=== PATIENT | female | born 1955 | race Caucasian/White ===

== ENCOUNTER 2020-01-09 21:19 | Inpatient (IN) | payer BC ==
[~2020-01-09] VITALS: Ht 167.6 cm; Wt 69.5 kg
[2020-01-09 21:47] LABS: BASOPHILS % (AUTO) 0.3 % (0-1); EOSINOPHILS % (AUTO) 0 % (0-6); HEMOGLOBIN 17.1 g/dl (12.0-16.0); LYMPHOCYTES % (AUTO) 5.7 % (21-51); MEAN CORPUSCULAR HEMOGLOBIN 32.7 PG (27.0-31.0); MEAN CORPUSCULAR HGB CONC 34.3 g/dL (33.0-36.5); MEAN CORPUSCULAR VOLUME 95.4 FL (78-98); MEAN PLATELET VOLUME 7.3 FL (7.4-10.4); MONOCYTES # (AUTO) 0.7 X10'3 (0-0.9); MONOCYTES % (AUTO) 4.1 % (2-12); NEUTROPHILS # (AUTO) 15.3 X10'3 (1.8-7.7); NEUTROPHILS % (AUTO) 89.9 % (42-75); PLATELET COUNT 298 X10'3 (140-440); RED BLOOD COUNT 5.24 X10'6 (4.20-5.60); RED CELL DISTRIBUTION WIDTH 13.1 % (11.5-14.5)
[2020-01-09 22:01] LABS: ALANINE AMINOTRANSFERASE 34 U/L (12-78); ALBUMIN 4.9 G/DL (3.4-5.0); ALBUMIN/GLOBULIN RATIO 1.3 (1.1-1.5); ALKALINE PHOSPHATASE 97 IU/L (46-116); ANION GAP 12 (8-16); ASPARTATE AMINO TRANSFERASE 17 U/L (10-37); BILIRUBIN,TOTAL 0.5 MG/DL (0.1-1.0); BLOOD UREA NITROGEN 29 MG/DL (7-18); BUN/CREATININE RATIO 20.4 (6.6-38.0); CALCIUM 10.1 MG/DL (8.5-10.1); CHLORIDE 101 MMOL/L (99-107); CREATININE 1.42 MG/DL (0.40-0.90); GLUCOSE 155 MG/DL (70-104); LIPASE 122 U/L (73-393); POTASSIUM 3.8 MMOL/L (3.5-5.1); SODIUM 140 MMOL/L (135-145); TOTAL CARBON DIOXIDE 26.8 MMOL/L (24-32); TOTAL PROTEIN 8.7 G/DL (6.4-8.2); eGFR 37 ML/MIN
[2020-01-09] MEDS ORDERED: ondansetron/PF 4mg/2ml inj IV ONE (23:05)
[2020-01-09] MEDS ORDERED: normal saline 1000ml 1,000 ML IV ONE (23:05)
[2020-01-09] MEDS ORDERED: morphine 4 MG/ML inj SYRINge IV ONE (23:05)
[2020-01-09 23:08] LABS: URINE HCG NEGATIVE (NEG)
[2020-01-09] MEDS ORDERED: iohexol 300mg/ml 100ml inj. ONE (23:41)
[2020-01-10] VITALS (20 sets, daily range): BP systolic 101–170; BP diastolic 58–82
[2020-01-10 00:10] LABS: CLARITY,URINE SLIGHTLY CLOUDY (Clear); COLOR,URINE YELLOW (Yellow); GLUCOSE, URINE NEGATIVE (Neg); KETONES,URINE NEGATIVE (Neg); LEUKOCYTE ESTERASE ,URINE NEGATIVE (Neg); NITRITES, URINE NEGATIVE (Neg); OCCULT BLOOD,URINE TRACE-INTACT (Neg); PH,URINE 5.5 (4.8-8.0); PROTEIN,URINE NEGATIVE (Neg); UROBILINOGEN,URINE 0.2 E.U/dL (0.2-1.0)
[2020-01-10 00:29] LABS: UA COLLECTION TYPE CLN CATCH MIDSTREAM
[2020-01-10 00:30] LABS: MUCUS STRANDS MANY /LPF (Neg); SQUAMOUS EPITHELIAL CELL,UR MANY /LPF (FEW)
[2020-01-10 00:31] LABS: HYALINE CASTS >30 /LPF (NEGATIVE)
[2020-01-10 00:32] LABS: BACTERIA,URINE 2+ /HPF (Neg); RBC,URINE NONE SEEN /HPF (0-2); WBC,URINE 0-4 /HPF (0-4)
[2020-01-10] MEDS ORDERED: LEVO150T PO (00:47)
[2020-01-10] MEDS ORDERED: BUPR150T8 PO (00:47)
--- NOTE | 2020-01-10 00:47 | NUR ---
NG TUBE PLACED WITH LAITH ALMANZAR. AUSCULTATED AIR PUSH IN STOMACH. DRAINING RUST COLORED STOMACH FLUID.
[2020-01-10] MEDS ORDERED: magnesium hydroxide 30ml (MOM) UD suspension PO PRN (01:15)
[2020-01-10] MEDS ORDERED: ondansetron/PF 4mg/2ml inj IV PRN ×2 (01:15→12:25)
[2020-01-10] MEDS ORDERED: bisacodyl 10mg suppository rectal RC PRN (01:15)
[2020-01-10] MEDS ORDERED: magnesium 2GM in 50ml NS 50 ML IV PRN (01:15)
[2020-01-10] MEDS ORDERED: metoclopramide 5 mg/ml inj IV PRN (01:15)
[2020-01-10] MEDS ORDERED: magnesium Cl slow-release 64mg tablet PO PRN (01:15)
[2020-01-10] MEDS ORDERED: morphine 2 MG/ML inj. syringe IV PRN ×2 (01:15→12:25)
[2020-01-10] MEDS ORDERED: magnesium 4gm in 100ml NS 100 ML IV PRN (01:15)
[2020-01-10] MEDS ORDERED: HYDROmorphone inj. 0.5 MG/0.5 ML DISP.SYRIN IV PRN (01:15)
[2020-01-10] MEDS ORDERED: mag hydrox/Alum hydrox/simeth 30ml oral suspension PO PRN (01:15)
[2020-01-10] MEDS ORDERED: potassium Cl 20 mEq SR tablet PO PRN ×2 (01:15)
[2020-01-10] MEDS ORDERED: potassium CL 10mEq/100ml bag 100 ML IV PRN (01:15)
[2020-01-10] MEDS ORDERED: acetaminophen 325mg tablet PO PRN (01:15)
--- NOTE | 2020-01-10 02:00 | NUR ---
Received report from KALI Killian RN
--- NOTE | 2020-01-10 02:45 | NUR ---
0230: Patient arrived to unit via gurney and RN transporting. She had her back pack and bag of belongings. She is ALOx4, And [facility] bed.
[2020-01-10] MEDS: normal saline 1000ml 1,000 ML IV SCH ×3 (03:02→15:04)
[2020-01-10] MEDS: piperacillin/tazo 3.375gm/50ml 50 ML IV SCH ×3 (03:19→16:57)
[2020-01-10] MEDS ORDERED: diatr meglu/diatrizoate 30ml oral sol.-(3 dose) bottle PO ONE (04:15)
[2020-01-10] MEDS: morphine 2 MG/ML inj. syringe IV PRN ×2 (05:25→09:26)
--- NOTE | 2020-01-10 06:49 | NUR ---
Problems reprioritized. Patient report given, questions answered & plan of care reviewed with JENELLE Dunlap.
--- NOTE | 2020-01-10 06:54 | NUR ---
Patient in room [facility]. I have received report from Gibson ALMANZAR and had the opportunity to ask questions and assume patient care.
[2020-01-10] MEDS: buPROPion SR 150mg tablet PO SCH (07:54)
[2020-01-10] MEDS: levoTHYROXINE 75mcg tablet PO SCH (07:55)
[2020-01-10] MEDS: heparin, porcine 5000 units/ml vial SQ SCH ×2 (08:00→19:42)
[2020-01-10] MEDS: K and/or MAG REPLACEMENT MC SCH ×2 (08:00→20:00)
[2020-01-10] MEDS ORDERED: BUPIVAcaine/PF 2.5 mg/ml (0.25%) 30ml vial ONE (11:29)
[2020-01-10] MEDS ORDERED: BUPIVAcaine/PF 2.5mg/ml (0.25%) 10ml vial ONE (11:29)
[2020-01-10] MEDS ORDERED: LIDOcaine 1% 30ml preserv. free vial ONE (11:29)
[2020-01-10] MEDS ORDERED: BUPIVACAINE liposomal/PF 13.3 MG/ML vial IM ONE (11:29)
[2020-01-10] MEDS ORDERED: ceFOXitin 2GM-NS 100mL ADDvant 100 ML IV ONE (11:35)
[2020-01-10] MEDS ORDERED: rocuronium 10mg/ml inj IV ONE (11:36)
[2020-01-10] MEDS ORDERED: propofol inj 20 ML IV ONE (11:36)
[2020-01-10] MEDS ORDERED: fentaNYL/PF 50MCG/1 ML 2ML syringe ONE (11:36)
[2020-01-10] MEDS ORDERED: LIDOcaine 2% (20mg/ml) 5ml vial ONE (11:36)
[2020-01-10] MEDS ORDERED: midazolam 2 mg/2 ml injection ONE (11:36)
[2020-01-10] MEDS ORDERED: ceFOXitin 2GM-NS 50mL ADDVANT. 50 ML IV ONE (11:42)
[2020-01-10] MEDS ORDERED: ceFOXitin sod/dextrose 2g/50ml 50 ML IV ONE (11:45)
[2020-01-10] MEDS ORDERED: sevoflurane 250ml liquid IH ONE (11:53)
[2020-01-10 11:57] LABS: BASOPHILS % (AUTO) 0.2 % (0-1); EOSINOPHILS % (AUTO) 0.1 % (0-6); HEMATOCRIT 48.8 % (35.0-45.0); HEMOGLOBIN 16.7 g/dl (12.0-16.0); LYMPHOCYTES # (AUTO) 1.4 X10'3 (1.1-4.8); LYMPHOCYTES % (AUTO) 11.5 % (21-51); MEAN CORPUSCULAR HEMOGLOBIN 32.7 PG (27.0-31.0); MEAN CORPUSCULAR HGB CONC 34.2 g/dL (33.0-36.5); MEAN CORPUSCULAR VOLUME 95.5 FL (78-98); MEAN PLATELET VOLUME 7.1 FL (7.4-10.4); MONOCYTES # (AUTO) 1.3 X10'3 (0-0.9); NEUTROPHILS # (AUTO) 9.5 X10'3 (1.8-7.7); NEUTROPHILS % (AUTO) 77.2 % (42-75); PLATELET COUNT 294 X10'3 (140-440); RED BLOOD COUNT 5.11 X10'6 (4.20-5.60); RED CELL DISTRIBUTION WIDTH 13.2 % (11.5-14.5); WHITE BLOOD COUNT 12.2 X10'3 (4.5-11.0)
[2020-01-10 12:08] LABS: ALBUMIN 4.3 G/DL (3.4-5.0); ANION GAP 10 (8-16); BLOOD UREA NITROGEN 31 MG/DL (7-18); BUN/CREATININE RATIO 27.2 (6.6-38.0); CALCIUM 9.2 MG/DL (8.5-10.1); CHLORIDE 100 MMOL/L (99-107); CREATININE 1.14 MG/DL (0.40-0.90); GLUCOSE 146 MG/DL (70-104); POTASSIUM 3.2 MMOL/L (3.5-5.1); SODIUM 141 MMOL/L (135-145); TOTAL CARBON DIOXIDE 30.6 MMOL/L (24-32); eGFR 48 ML/MIN
[2020-01-10] MEDS ORDERED: ringers solution, lacted 1,000 ML IV SCH (12:22)
[2020-01-10] MEDS ORDERED: proCHLORperazine 10 MG/2 ml inj IV PRN (12:25)
[2020-01-10] MEDS ORDERED: morphine 4 MG/ML inj SYRINge IV PRN (12:25)
[2020-01-10] MEDS ORDERED: meperidine/PF 25mg/ml syringe IV PRN ×3 (12:25)
[2020-01-10] MEDS ORDERED: glycopyrrolate 0.2mg/ml inj ONE (12:29)
[2020-01-10] MEDS ORDERED: dexamethasone sod phosphate 4mg/ml inj. ONE (12:29)
[2020-01-10] MEDS ORDERED: ondansetron/PF 4mg/2ml inj ONE (12:29)
[2020-01-10] MEDS ORDERED: neostigmine methylsulfate 1 MG/ML 10ml vial ONE (12:29)
[2020-01-10 13:00] LABS: PLATELET ESTIMATE NORMAL; TOTAL CELLS COUNTED 100
--- NOTE | 2020-01-10 13:35 | NUR ---
Received from OR via BED, accompanied by Anesthesiologist CATALINA and report given by Anesthesiolgist. PT SLEEPY, OXYGENATING WELL ON 10 LPM O2 VIA MASK, NO RESP DISTRESS NOTED. DENIES NAUSEA, HAS NGT TO R NARE, CONNECTED TO LIWS. C/O MILD ABD PAIN, HAD TAP BLOCK. MIDLINE INCISION COVERED WITH ISLAND DSG CDI. FC PATENT, SMALL OUTPUT OF CLOUDY URINE. VSS. SCDS ON.
[2020-01-10] MEDS ORDERED: naloxone 0.4 mg/ml inj IV PRN (14:05)
[2020-01-10] MEDS ORDERED: CADD PCA waste documentation MC PRN (14:05)
--- NOTE | 2020-01-10 14:45 | NUR ---
Report called to receiving nurse. Transferred via BED Belongings IN PT ROOM. PT DECLINED ADDITIONAL PAIN MEDS PRIOR TO TRANSFER. VSS. DECLINED WATER OT ICE CHIPS TO WET HER MOUTH. TRANSFERRED TO 3 SURG IN STABLE CONDITION. Special Issues communicated to receiving nurse.
[2020-01-10] MEDS: HYDROmorphone/NS 1 mg/ml CADD 50 ML IV SCH ×6 (14:59→23:50)
--- NOTE | 2020-01-10 18:44 | NUR ---
Problems reprioritized. Patient report given, questions answered & plan of care reviewed with Gibson ALMANZAR/ Jose Daniel HAYS.
--- NOTE | 2020-01-10 19:12 | NUR ---
Patient in room [facility]. I have received report from JENELLE Johansen and had the opportunity to ask questions and assume patient care.
[2020-01-10] MEDS: potassium CL 10mEq/100ml bag 100 ML IV PRN ×3 (19:46→23:50)
[2020-01-10] MEDS: benzocaine/menthol oral lozeng 1 EACH BOX MM PRN ×2 (20:06→23:52)
[2020-01-10] MEDS: diphenhydrAMINE 25mg capsule PO PRN (22:20)
[2020-01-11] VITALS: BP 101/51
[2020-01-11] MEDS: HYDROmorphone/NS 1 mg/ml CADD 50 ML IV SCH ×12 (01:00→23:00)
[2020-01-11] MEDS: piperacillin/tazo 3.375gm/50ml 50 ML IV SCH ×4 (01:28→23:57)
[2020-01-11] MEDS: normal saline 1000ml 1,000 ML IV SCH ×2 (02:29→16:52)
[2020-01-11 04:00] VITALS: BP 165/51
[2020-01-11 05:09] LABS: BASOPHILS % (AUTO) 0.5 % (0-1); EOSINOPHILS % (AUTO) 0.3 % (0-6); HEMATOCRIT 39.9 % (35.0-45.0); HEMOGLOBIN 13.7 g/dl (12.0-16.0); LYMPHOCYTES # (AUTO) 2.3 X10'3 (1.1-4.8); LYMPHOCYTES % (AUTO) 29.8 % (21-51); MEAN CORPUSCULAR HEMOGLOBIN 33.2 PG (27.0-31.0); MEAN CORPUSCULAR HGB CONC 34.4 g/dL (33.0-36.5); MEAN CORPUSCULAR VOLUME 96.5 FL (78-98); MEAN PLATELET VOLUME 7.2 FL (7.4-10.4); MONOCYTES # (AUTO) 0.9 X10'3 (0-0.9); MONOCYTES % (AUTO) 11.6 % (2-12); NEUTROPHILS # (AUTO) 4.5 X10'3 (1.8-7.7); NEUTROPHILS % (AUTO) 57.8 % (42-75); PLATELET COUNT 240 X10'3 (140-440); RED BLOOD COUNT 4.14 X10'6 (4.20-5.60); RED CELL DISTRIBUTION WIDTH 13.4 % (11.5-14.5); WHITE BLOOD COUNT 7.7 X10'3 (4.5-11.0)
[2020-01-11 05:26] LABS: ALANINE AMINOTRANSFERASE 20 U/L (12-78); ALBUMIN 2.9 G/DL (3.4-5.0); ALKALINE PHOSPHATASE 54 IU/L (46-116); ANION GAP 6 (8-16); ASPARTATE AMINO TRANSFERASE 16 U/L (10-37); BILIRUBIN,TOTAL 0.7 MG/DL (0.1-1.0); BLOOD UREA NITROGEN 18 MG/DL (7-18); BUN/CREATININE RATIO 21.7 (6.6-38.0); CALCIUM 7.6 MG/DL (8.5-10.1); CHLORIDE 103 MMOL/L (99-107); CREATININE 0.83 MG/DL (0.40-0.90); GLUCOSE 110 MG/DL (70-104); MAGNESIUM 1.7 MG/DL (1.5-2.4); POTASSIUM 3.2 MMOL/L (3.5-5.1); SODIUM 139 MMOL/L (135-145); TOTAL CARBON DIOXIDE 30.1 MMOL/L (24-32); TOTAL PROTEIN 5.7 G/DL (6.4-8.2); eGFR 69 ML/MIN
--- NOTE | 2020-01-11 06:10 | NUR ---
Patient in room [facility]. I have received report from Gibson ALMANZAR and had the opportunity to ask questions and assume patient care.
--- NOTE | 2020-01-11 06:13 | NUR ---
Problems reprioritized. Patient report given, questions answered & plan of care reviewed with JENELLE Posey.
[2020-01-11 07:00] VITALS: BP 163/55
[2020-01-11] MEDS: buPROPion SR 150mg tablet PO SCH (07:18)
[2020-01-11] MEDS: levoTHYROXINE 75mcg tablet PO SCH (07:20)
[2020-01-11] MEDS: K and/or MAG REPLACEMENT MC SCH ×2 (07:40→19:22)
--- NOTE | 2020-01-11 08:07 | NUR ---
Clamped NG for 30 min for medications, patient tolerated well. Addendum: 01/11/20 at 0811 by Taty Hall RN Amended: Links added.
[2020-01-11 11:00] VITALS: BP 105/62
[2020-01-11 12:00] VITALS: BP 105/62
--- NOTE | 2020-01-11 12:43 | NUR ---
Patient out of bed walking the hallways ad patricia. Patient wishes to have FC removed, will talk to Dr. Peterson on his rounding about this. Patient states that she will not have a BM until she is eating food, this is her normal routine since having colon removed.
[2020-01-11] MEDS: enoxaparin 40mg/0.4ml syringe SQ SCH (14:50)
--- NOTE | 2020-01-11 14:52 | NUR ---
Patient in room [facility]. I have received report from JENELLE Posey and had the opportunity to ask questions and assume patient care.
--- NOTE | 2020-01-11 14:54 | NUR ---
Problems reprioritized. Patient report given, questions answered & plan of care reviewed with Manuela ALMANZAR.
[2020-01-11] MEDS: diphenhydrAMINE 25mg capsule PO PRN (15:43)
--- NOTE | 2020-01-11 15:56 | NUR ---
Pt states she had one small BM consistent with diarrhea. Denies pain with BM. Addendum: 01/11/20 at 1557 by Jessica MOSELEY Amended: Links added.
--- NOTE | 2020-01-11 18:00 | NUR ---
Patient in room [facility]. I have received report from Manuela ALMANZAR and had the opportunity to ask questions and assume patient care.
--- NOTE | 2020-01-11 18:31 | NUR ---
Problems reprioritized. Patient report given, questions answered & plan of care reviewed with JENELLE Bruner.
[2020-01-11] MEDS: lactobacillus rhamnosus 10,000 MMU CELLS/CAPSULE PO SCH (19:16)
[2020-01-11 20:00] VITALS: BP 115/63
[2020-01-12] VITALS: BP 120/73
[2020-01-12] MEDS: normal saline 1000ml 1,000 ML IV SCH (00:27)
[2020-01-12] MEDS: HYDROmorphone/NS 1 mg/ml CADD 50 ML IV SCH ×12 (01:00→23:00)
[2020-01-12 05:34] LABS: BASOPHILS % (AUTO) 0.5 % (0-1); EOSINOPHILS % (AUTO) 0.2 % (0-6); HEMATOCRIT 36.8 % (35.0-45.0); HEMOGLOBIN 12.5 g/dl (12.0-16.0); LYMPHOCYTES % (AUTO) 24.1 % (21-51); MEAN CORPUSCULAR HEMOGLOBIN 32.6 PG (27.0-31.0); MONOCYTES # (AUTO) 0.7 X10'3 (0-0.9); MONOCYTES % (AUTO) 8.8 % (2-12); NEUTROPHILS # (AUTO) 5.6 X10'3 (1.8-7.7); NEUTROPHILS % (AUTO) 66.4 % (42-75); PLATELET COUNT 210 X10'3 (140-440); RED BLOOD COUNT 3.83 X10'6 (4.20-5.60); RED CELL DISTRIBUTION WIDTH 13.1 % (11.5-14.5); WHITE BLOOD COUNT 8.4 X10'3 (4.5-11.0)
[2020-01-12 05:46] LABS: ALANINE AMINOTRANSFERASE 19 U/L (12-78); ALBUMIN 2.7 G/DL (3.4-5.0); ALBUMIN/GLOBULIN RATIO 0.9 (1.1-1.5); ALKALINE PHOSPHATASE 56 IU/L (46-116); ANION GAP 9 (8-16); ASPARTATE AMINO TRANSFERASE 16 U/L (10-37); BILIRUBIN,TOTAL 0.6 MG/DL (0.1-1.0); BLOOD UREA NITROGEN 11 MG/DL (7-18); BUN/CREATININE RATIO 15.1 (6.6-38.0); CALCIUM 7.7 MG/DL (8.5-10.1); CHLORIDE 101 MMOL/L (99-107); CREATININE 0.73 MG/DL (0.40-0.90); GLUCOSE 94 MG/DL (70-104); MAGNESIUM 1.9 MG/DL (1.5-2.4); POTASSIUM 3.5 MMOL/L (3.5-5.1); SODIUM 136 MMOL/L (135-145); TOTAL CARBON DIOXIDE 26.1 MMOL/L (24-32); TOTAL PROTEIN 5.7 G/DL (6.4-8.2); eGFR 80 ML/MIN
--- NOTE | 2020-01-12 06:05 | NUR ---
Problems reprioritized. Patient report given, questions answered & plan of care reviewed with Taty ALMANZAR.
--- NOTE | 2020-01-12 06:12 | NUR ---
Patient in room [facility]. I have received report from Zohreh ALMANZAR and had the opportunity to ask questions and assume patient care.
[2020-01-12] MEDS: buPROPion SR 150mg tablet PO SCH (07:01)
[2020-01-12] MEDS: levoTHYROXINE 75mcg tablet PO SCH (07:02)
[2020-01-12] MEDS: lactobacillus rhamnosus 10,000 MMU CELLS/CAPSULE PO SCH (07:02)
[2020-01-12] MEDS: enoxaparin 40mg/0.4ml syringe SQ SCH (07:04)
[2020-01-12] MEDS: piperacillin/tazo 3.375gm/50ml 50 ML IV SCH (07:05)
[2020-01-12 07:22] VITALS: BP 141/77
[2020-01-12] MEDS: K and/or MAG REPLACEMENT MC SCH ×2 (07:22→19:00)
[2020-01-12] MEDS ORDERED: pantoprazole 40 MG vial IV ONE (08:10)
--- NOTE | 2020-01-12 08:11 | NUR ---
Dr Peterson in to see patient this morning, Suction has been restarted. 1000cc dark green bile output when NG was connected and restarted. Patient denied N/V, even through out the night. Patient diet is being changed to sips/chips from clear liquids. Will continue to monitor.
--- NOTE | 2020-01-12 09:58 | NUR ---
Requested new IVFs to be filled from pharmacy, message sent.
[2020-01-12] MEDS: potassium 20mEq/D5LR 1,000 ML IV SCH ×3 (10:32→18:59)
[2020-01-12] MEDS: benzocaine/menthol oral lozeng 1 EACH BOX MM PRN (10:51)
[2020-01-12 11:00] VITALS: BP 144/77
[2020-01-12 11:27] VITALS: BP 144/77
--- NOTE | 2020-01-12 11:50 | NUR ---
Student documentation and Medication Administration I have reviewed all interventions, assessments performed and documented, all medication-pass' for the time frame [id number], all medication were reviewed, dispensed, administered and documented per hospital policy by Jessica HAYS from [facility].
--- NOTE | 2020-01-12 16:26 | NUR ---
reviewed student nurse charting
--- NOTE | 2020-01-12 16:59 | NUR ---
500 mL dark green output Addendum: 01/12/20 at 1700 by Jessica MOSELEY Amended: Links added.
--- NOTE | 2020-01-12 18:33 | NUR ---
Patient in room [facility]. I have received report from Taty ALMANZAR and had the opportunity to ask questions and assume patient care.
--- NOTE | 2020-01-12 18:33 | NUR ---
Patient in room [facility]. I have received report from Taty ALMANZAR and had the opportunity to ask questions and assume patient care.
--- NOTE | 2020-01-12 18:34 | NUR ---
Problems reprioritized. Patient report given, questions answered & plan of care reviewed with Lexus ALMANZAR.
[2020-01-12] MEDS: diphenhydrAMINE 25mg capsule PO PRN (18:59)
[2020-01-12 20:00] VITALS: BP 140/81
[2020-01-13] VITALS: BP 167/87
[2020-01-13] MEDS: diphenhydrAMINE 25mg capsule PO PRN ×2 (00:57→19:08)
[2020-01-13] MEDS: benzocaine/menthol oral lozeng 1 EACH BOX MM PRN (00:58)
[2020-01-13] MEDS: HYDROmorphone/NS 1 mg/ml CADD 50 ML IV SCH ×8 (01:00→15:00)
[2020-01-13] MEDS: potassium 20mEq/D5LR 1,000 ML IV SCH ×2 (01:08→09:16)
[2020-01-13 04:54] LABS: BASOPHILS % (AUTO) 0.7 % (0-1); EOSINOPHILS # (AUTO) 0.1 X10'3 (0-0.9); EOSINOPHILS % (AUTO) 1.7 % (0-6); HEMATOCRIT 38.5 % (35.0-45.0); HEMOGLOBIN 13.1 g/dl (12.0-16.0); LYMPHOCYTES % (AUTO) 32.9 % (21-51); MEAN CORPUSCULAR HEMOGLOBIN 32.6 PG (27.0-31.0); MEAN CORPUSCULAR VOLUME 95.8 FL (78-98); MEAN PLATELET VOLUME 6.7 FL (7.4-10.4); MONOCYTES # (AUTO) 0.6 X10'3 (0-0.9); MONOCYTES % (AUTO) 9.3 % (2-12); NEUTROPHILS # (AUTO) 3.4 X10'3 (1.8-7.7); NEUTROPHILS % (AUTO) 55.4 % (42-75); PLATELET COUNT 217 X10'3 (140-440); RED BLOOD COUNT 4.02 X10'6 (4.20-5.60); RED CELL DISTRIBUTION WIDTH 13.2 % (11.5-14.5); WHITE BLOOD COUNT 6.1 X10'3 (4.5-11.0)
[2020-01-13 05:17] LABS: ALANINE AMINOTRANSFERASE 12 U/L (12-78); ALBUMIN 2.8 G/DL (3.4-5.0); ALBUMIN/GLOBULIN RATIO 0.8 (1.1-1.5); ALKALINE PHOSPHATASE 57 IU/L (46-116); ANION GAP 6 (8-16); ASPARTATE AMINO TRANSFERASE 19 U/L (10-37); BILIRUBIN,TOTAL 0.4 MG/DL (0.1-1.0); BLOOD UREA NITROGEN 4 MG/DL (7-18); CALCIUM 8.1 MG/DL (8.5-10.1); CHLORIDE 104 MMOL/L (99-107); CREATININE 0.67 MG/DL (0.40-0.90); GLUCOSE 115 MG/DL (70-104); MAGNESIUM 1.9 MG/DL (1.5-2.4); POTASSIUM 3.6 MMOL/L (3.5-5.1); SODIUM 138 MMOL/L (135-145); TOTAL CARBON DIOXIDE 28.5 MMOL/L (24-32); TOTAL PROTEIN 6.3 G/DL (6.4-8.2); eGFR 89 ML/MIN
--- NOTE | 2020-01-13 06:39 | NUR ---
Problems reprioritized. Patient report given, questions answered & plan of care reviewed with Hoa RN. Patient stable at transfer of care. all current needs met
--- NOTE | 2020-01-13 06:39 | NUR ---
Problems reprioritized. Patient report given, questions answered & plan of care reviewed with Hoa RN.
[2020-01-13 07:25] VITALS: BP 140/81
[2020-01-13] MEDS: buPROPion SR 150mg tablet PO SCH (07:53)
[2020-01-13] MEDS: levoTHYROXINE 75mcg tablet PO SCH (07:53)
[2020-01-13] MEDS: enoxaparin 40mg/0.4ml syringe SQ SCH (07:54)
[2020-01-13] MEDS: K and/or MAG REPLACEMENT MC SCH ×2 (08:00→20:00)
[2020-01-13] MEDS ORDERED: pantoprazole 40 MG vial IV SCH (08:00)
[2020-01-13 11:30] VITALS: BP 148/84
[2020-01-13] MEDS ORDERED: oxyCODONE/APAP 5-325mg tablet PO PRN (16:45)
--- NOTE | 2020-01-13 18:00 | NUR ---
Patient in room [facility]. I have received report from Hoa ALMANZAR and had the opportunity to ask questions and assume patient care.
--- NOTE | 2020-01-13 18:31 | NUR ---
Problems reprioritized. Patient report given, questions answered & plan of care reviewed with JENELLE Bruner.
[2020-01-13 20:02] VITALS: BP 160/88
[2020-01-14 00:06] VITALS: BP 117/68
[2020-01-14 05:08] LABS: BASOPHILS % (AUTO) 0.7 % (0-1); EOSINOPHILS # (AUTO) 0.1 X10'3 (0-0.9); EOSINOPHILS % (AUTO) 1.8 % (0-6); HEMATOCRIT 41.9 % (35.0-45.0); HEMOGLOBIN 14.6 g/dl (12.0-16.0); LYMPHOCYTES % (AUTO) 30.6 % (21-51); MEAN CORPUSCULAR HEMOGLOBIN 33.2 PG (27.0-31.0); MEAN CORPUSCULAR HGB CONC 34.7 g/dL (33.0-36.5); MEAN CORPUSCULAR VOLUME 95.7 FL (78-98); MEAN PLATELET VOLUME 6.8 FL (7.4-10.4); MONOCYTES # (AUTO) 0.5 X10'3 (0-0.9); MONOCYTES % (AUTO) 7.8 % (2-12); NEUTROPHILS # (AUTO) 3.9 X10'3 (1.8-7.7); NEUTROPHILS % (AUTO) 59.1 % (42-75); PLATELET COUNT 272 X10'3 (140-440); RED BLOOD COUNT 4.38 X10'6 (4.20-5.60); RED CELL DISTRIBUTION WIDTH 12.9 % (11.5-14.5); WHITE BLOOD COUNT 6.6 X10'3 (4.5-11.0)
[2020-01-14 05:29] LABS: ALANINE AMINOTRANSFERASE 21 U/L (12-78); ALBUMIN/GLOBULIN RATIO 0.8 (1.1-1.5); ALKALINE PHOSPHATASE 67 IU/L (46-116); ANION GAP 9 (8-16); ASPARTATE AMINO TRANSFERASE 15 U/L (10-37); BILIRUBIN,TOTAL 0.5 MG/DL (0.1-1.0); BLOOD UREA NITROGEN 9 MG/DL (7-18); BUN/CREATININE RATIO 12.5 (6.6-38.0); CALCIUM 8.9 MG/DL (8.5-10.1); CHLORIDE 102 MMOL/L (99-107); CREATININE 0.72 MG/DL (0.40-0.90); GLUCOSE 93 MG/DL (70-104); MAGNESIUM 1.9 MG/DL (1.5-2.4); POTASSIUM 3.7 MMOL/L (3.5-5.1); SODIUM 138 MMOL/L (135-145); TOTAL CARBON DIOXIDE 26.7 MMOL/L (24-32); TOTAL PROTEIN 6.7 G/DL (6.4-8.2); eGFR 82 ML/MIN
--- NOTE | 2020-01-14 06:30 | NUR ---
Problems reprioritized. Patient report given, questions answered & plan of care reviewed with Marie ALMANZAR.
--- NOTE | 2020-01-14 06:32 | NUR ---
Patient in room [facility]. I have received report from JENELLE Bruner and had the opportunity to ask questions and assume patient care.
[2020-01-14] MEDS: levoTHYROXINE 75mcg tablet PO SCH (07:30)
[2020-01-14] MEDS: buPROPion SR 150mg tablet PO SCH (07:30)
[2020-01-14] MEDS: enoxaparin 40mg/0.4ml syringe SQ SCH (07:32)
[2020-01-14] MEDS ORDERED: pantoprazole 40mg Tablet.DR PO SCH (08:00)
[2020-01-14 08:09] VITALS: BP 143/90
--- NOTE | 2020-01-14 10:36 | NUR ---
Pt D/C's home in stable condition. Medication and discharge instruction given to Pt. Tolerating Full liquids diet well. NO c/o pain or discomfort. Pt was escorted to main lobby. Left the hospital accompanied by family member via private vehicle.
== END 2020-01-14 10:00 | disposition home or self-care (01) | DRG 337 ==
LOC: ER 21:21 → ED HOLD 01-10 01:14 → SUR 3N 01-10 02:45
PROVIDERS: ADMIT Family Medicine; ATTEND Internal Medicine
PROC: 0D9670Z Drainage of Stomach with Drainage Device, Via Natural or Artificial Opening (ICD-10-PCS; principal; 2020-01-09)
PROC: 0DN84ZZ Release Small Intestine, Percutaneous Endoscopic Approach (ICD-10-PCS; 2020-01-10)
PROC: 3E0T3BZ Introduction of Anesthetic Agent into Peripheral Nerves and Plexi, Percutaneous Approach (ICD-10-PCS; 2020-01-10)
DX: K56.609 Unspecified intestinal obstruction, unspecified as to partial versus complete obstruction (principal); K46.9 Unspecified abdominal hernia without obstruction or gangrene; D72.829 Elevated white blood cell count, unspecified; E03.9 Hypothyroidism, unspecified; M32.9 Systemic lupus erythematosus, unspecified; Z90.49 Acquired absence of other specified parts of digestive tract; Z90.710 Acquired absence of both cervix and uterus
CPT/HCPCS: 99285; Z7506; 36415; 74176; 74177; 80048; 80053; 81001; 81003; 81025; 82948; 83690; 83735; 84443; 85007; 85025; 87081; 93005; A4215; A4618; A7000; C1758; C9113; C9290; G0378; J0694; J1100; J1170; J1644; J1650; J2001; J2175; J2250; J2270; J2405; J2543; J2704; J2710; J2765; J3010; J3480; J3490; J7030; J7120; Q0163; Q9963; Q9967